=== PATIENT | male | born 1990 | race Caucasian/White ===

== ENCOUNTER 2019-12-14 09:12 | Emergency (ER) | payer BC ==
--- NOTE | 2019-12-14 09:35 | ERPHSYRPT ---
- History of Present Illness Time Seen by Provider: 12/14/19 09:25 Source: patient Exam Limitations: clinical condition Patient Subjective Stated Complaint: Pt states "I was coughing up phlegm last night and this morning I started to have horrible shortness of breath." Triage Nursing Assessment: Pt presetned alert and oriented X 3, skin pwd Pt an xious, tachpniec, moanin. Pt a febrile, clear lung sounds. Physician History: This is a 29-year-old obese white male who works at a correctional facility and presents with relatively sudden onset of productive cough for o'clock this morning. Patient was coughing to the point of gagging. He was producing greenish sputum. Patient has no history of asthma or primary respiratory issues per his report. He does have some mild anxiety. Patient complained of some mild chest pain as well. Patient was short of breath when coughing. The coughing has subsided but the patient has muscle aches and pains that are generalized. He denies nausea vomiting or diarrhea. He did not take his temperature but arrives with no fever. He has not been around anyone that has been ill per his knowledge. Timing/Duration: today Cough Quality/Degree: moderate, productive cough Possible Cause: no prior episodes Modifying Factors: Improves With: coughing Associated Symptoms: chest pain/soreness, cough (Productive green sputum) Allergies/Adverse Reactions: No Known Drug Allergies Allergy (Unverified 12/14/19 09:19) Home Medications: Escitalopram Oxalate 10 mg [Lexapro 10 MG] 20 mg PO DAILY 12/14/19 [History] Naproxen 500 mg PO DAILY 12/14/19 [History] Hx Tetanus, Diphtheria Vaccination/Date Given: Yes Hx Influenza Vaccination/Date Given: No Hx Pneumococcal Vaccination/Date Given: No Immunizations Up to Date: Yes Travel Risk - International Travel Have you traveled outside of the country in past 3 weeks: No - Coronavirus Screening Are you exhibiting any of the following symptoms?: Yes Symptoms: Shortness of Breath Close contact with a COVID-19 positive Pt in past 14-21 Days: No - Review of Systems Constitutional: No Symptoms Eyes: No Symptoms Ears, Nose, & Throat: No Symptoms Respiratory: Cough Cardiac: No Symptoms Abdominal/Gastrointestinal: No Symptoms Genitourinary Symptoms: No Symptoms Musculoskeletal: Arthralgias, Myalgias Skin: No Symptoms Neurological: No Symptoms Psychological: No Symptoms Endocrine: No Symptoms Hematologic/Lymphatic: No Symptoms Immunological/Allergic: No Symptoms All Other Systems: Reviewed and Negative - Past Medical History Pertinent Past Medical History: Yes Neurological History: No Pertinent History ENT History: No Pertinent History Cardiac History: No Pertinent History Respiratory History: No Pertinent History Endocrine Medical History: No Pertinent History Musculoskeletal History: No Pertinent History GI Medical History: No Pertinent History History: No Pertinent History Psycho-Social History: Anxiety Male Reproductive Disorders: No Pertinent History Other Medical History: chronic back pain. depression - Past Surgical History Past Surgical History: Yes Neuro Surgical History: No Pertinent History Cardiac: No Pertinent History Respiratory: No Pertinent History Gastrointestinal: No Pertinent History Genitourinary: No Pertinent History Musculoskeletal: No Pertinent History Male Surgical History: No Pertinent History Other Surgical History: heart cath - Social History Smoking Status: Former smoker Exposure to second hand smoke: Yes Drug Use: none Patient Lives Alone: No - Nursing Vital Signs Nursing Vital Signs: Initial Vital Signs Temperature 98.4 F 12/14/19 09:12 Pulse Rate 90 12/14/19 09:12 Respiratory Rate 28 H 12/14/19 09:12 Blood Pressure 122/77 12/14/19 09:12 O2 Sat by Pulse Oximetry 97 12/14/19 09:12 Pain Scale Pain Intensity 4 - Physical Exam General Appearance: mild distress, alert, anxiety, obese Eye Exam: PERRL/EOMI, eyes nml inspection Ears, Nose, Throat Exam: normal ENT inspection, moist mucous membranes Neck Exam: normal inspection, non-tender, supple, full range of motion Respiratory Exam: normal breath sounds, chest tenderness, lungs clear, airway intact, No respiratory distress Cardiovascular Exam: regular rate/rhythm, normal heart sounds, normal peripheral pulses Gastrointestinal/Abdomen Exam: soft, normal bowel sounds, No tenderness Rectal Exam: not done Back Exam: normal inspection, normal range of motion, No CVA tenderness, No vertebral tenderness Extremity Exam: normal inspection, normal range of motion, pelvis stable Neurologic Exam: alert, oriented x 3, cooperative, church musician II-XII nml as tested, nml cerebellar function, nml station & gait, sensation nml Skin Exam: normal color, warm, dry Lymphatic Exam: No adenopathy SpO2 Interpretation: normal SpO2: 97 O2 Delivery: Room Air - Course Nursing assessment & vital signs reviewed: Yes EKG Interpreted by Me: RATE (89), Sinus Rhythm, NORMAL AXIS, NORMAL INTERVALS, NORMAL QRS, Other (No ischemic changes. No comparison EKG available) Ordered Tests: Active Orders 24 hr Category Date Time Status Car Pilot STAT Care 12/14/19 09:37 Active EKG-ER Only STAT Care 12/14/19 09:36 Active IV Insertion STAT Care 12/14/19 09:36 Active Pulse Oximetry (ED) STAT Care 12/14/19 09:36 Active CHEST 1 VIEW (PORTABLE) Stat Exams 12/14/19 09:36 Completed BLOOD CULTURE Stat Lab 12/14/19 10:25 Ordered CBC W DIFF Stat Lab 12/14/19 09:46 Completed CMP Stat Lab 12/14/19 09:46 Completed D-DIMER QUANTITATIVE Stat Lab 12/14/19 09:46 Completed Lactic Acid Stat Lab 12/14/19 09:50 Completed [place] Screen Stat Lab 12/14/19 09:46 Completed NT PRO BNP Stat Lab 12/14/19 09:46 Completed TROPONIN Q3H Lab 12/14/19 09:46 Completed TROPONIN Q3H Lab 12/14/19 12:45 Ordered TROPONIN Q3H Lab 12/14/19 15:45 Ordered TROPONIN Q3H Lab 12/14/19 18:45 Ordered TROPONIN Q3H Lab 12/14/19 21:45 Ordered UA W/RFX UR CULTURE Stat Lab 12/14/19 09:36 Uncollected Medication Summary Generic Name Dose Route Start Last Admin Trade Name Freq PRN Reason Stop Dose Admin Ceftriaxone Sodium/Dextrose 1 g in 50 mls @ 100 mls/hr 12/14/19 10:25 12/14/19 10:37 Rocephin 1 Gm-D5w 50 Ml Bag IV 12/14/19 10:54 100 mls/hr STAT STA 100 mls/hr Administration Discontinued Medications Generic Name Dose Route Start Last Admin Trade Name Freq PRN Reason Stop Dose Admin Hydrocodone Bitart/Acetaminophen 10 ml 12/14/19 10:25 12/14/19 10:36 Hydrocodone-Acetamin 2.5-108/5 Ml Solution PO 12/14/19 10:26 10 ml STAT STA Administration Hydrocodone Bitart/Acetaminophen Confirm 12/14/19 10:33 Hydrocodone-Acetamin 2.5-108/5 Ml Solution Administered 12/14/19 10:34 Dose 10 ml .ROUTE .STK-MED ONE Ceftriaxone Sodium/Dextrose Confirm 12/14/19 10:33 Rocephin 1 Gm-D5w 50 Ml Bag Administered 12/14/19 10:34 Dose 1 g in 50 mls @ ud IV .STK-MED ONE Methylprednisolone Sodium Succinate 125 mg 12/14/19 10:25 12/14/19 10:37 Solu-Medrol 125 Mg IV 12/14/19 10:26 125 mg STAT ONE Administration Methylprednisolone Sodium Succinate Confirm 12/14/19 10:33 Solu-Medrol 125 Mg Administered 12/14/19 10:34 Dose 125 mg .ROUTE .STK-MED ONE Lab/Rad Data: Laboratory Result Diagrams 12/14/19 09:46 12/14/19 09:46 Laboratory Results 12/14/19 12/14/19 12/14/19 Range/Units 10:00 09:50 09:46 WBC (4.0-10.5) K/mm3 RBC (4.1-5.6) M/mm3 Hgb (12.5-18.0) gm/dl Hct (42-50) % MCV (78-100) fl MCH (26-32) pg MCHC (32-36) g/dl RDW (11.5-14.0) % Plt Count (150-450) K/mm3 MPV (7.5-11.0) fl Gran % (36.0-66.0) % Eos # (Auto) (0-0.5) Absolute Lymphs (auto) (1.0-4.6) Absolute Monos (auto) (0.0-1.3) Lymphocytes % (24.0-44.0) % Monocytes % (0.0-12.0) % Eosinophils % (0.00-5.0) % Basophils % (0.0-0.4) % Absolute Granulocytes (1.4-6.9) Basophils # (0-0.4) D-Dimer (215-500) ng/mL Sodium (137-145) mmol/L Potassium (3.5-5.1) mmol/L Chloride (98-107) mmol/L Carbon Dioxide (22-30) mmol/L Anion Gap (5-15) MEQ/L BUN (9-20) mg/dL Creatinine (0.66-1.25) mg/dL Estimated GFR ML/MIN Glucose (74-106) mg/dL Lactic Acid 1.6 (0.4-2.0) Calcium (8.4-10.2) mg/dL Total Bilirubin (0.2-1.3) mg/dL AST (17-59) U/L ALT (0-50) U/L Alkaline Phosphatase (38-126) U/L Troponin I (0.000-0.034) ng/mL NT-Pro-B Natriuret Pep (0-450) pg/mL Serum Total Protein (6.3-8.2) g/dL Albumin (3.5-5.0) g/dL Monoscreen NEGATIVE (Negative) Influenza Type A Ag NEGATIVE (NEGATIVE) Influenza Type B Ag NEGATIVE (NEGATIVE) RSV (PCR) NEGATIVE (Negative) Group A Strep Antibody NOT DETECTED (NEGATIVE) 12/14/19 12/14/19 12/14/19 Range/Units 09:46 09:46 09:46 WBC (4.0-10.5) K/mm3 RBC (4.1-5.6) M/mm3 Hgb (12.5-18.0) gm/dl Hct (42-50) % MCV (78-100) fl MCH (26-32) pg MCHC (32-36) g/dl RDW (11.5-14.0) % Plt Count (150-450) K/mm3 MPV (7.5-11.0) fl Gran % (36.0-66.0) % Eos # (Auto) (0-0.5) Absolute Lymphs (auto) (1.0-4.6) Absolute Monos (auto) (0.0-1.3) Lymphocytes % (24.0-44.0) % Monocytes % (0.0-12.0) % Eosinophils % (0.00-5.0) % Basophils % (0.0-0.4) % Absolute Granulocytes (1.4-6.9) Basophils # (0-0.4) D-Dimer 247 (215-500) ng/mL Sodium 139 (137-145) mmol/L Potassium 3.9 (3.5-5.1) mmol/L Chloride 106 (98-107) mmol/L Carbon Dioxide 24 (22-30) mmol/L Anion Gap 13.0 (5-15) MEQ/L BUN 14 (9-20) mg/dL Creatinine 0.64 L (0.66-1.25) mg/dL Estimated GFR > 60.0 ML/MIN Glucose 99 (74-106) mg/dL Lactic Acid (0.4-2.0) Calcium 9.4 (8.4-10.2) mg/dL Total Bilirubin 0.40 (0.2-1.3) mg/dL AST 23 (17-59) U/L ALT 36 (0-50) U/L Alkaline Phosphatase 56 (38-126) U/L Troponin I < 0.012 (0.000-0.034) ng/mL NT-Pro-B Natriuret Pep 50.7 (0-450) pg/mL Serum Total Protein 6.6 (6.3-8.2) g/dL Albumin 3.9 (3.5-5.0) g/dL Monoscreen (Negative) Influenza Type A Ag (NEGATIVE) Influenza Type B Ag (NEGATIVE) RSV (PCR) (Negative) Group A Strep Antibody (NEGATIVE) 12/14/19 Range/Units 09:46 WBC 19.9 H (4.0-10.5) K/mm3 RBC 5.33 (4.1-5.6) M/mm3 Hgb 15.5 (12.5-18.0) gm/dl Hct 45.3 (42-50) % MCV 85.0 (78-100) fl MCH 29.1 (26-32) pg MCHC 34.2 (32-36) g/dl RDW 13.1 (11.5-14.0) % Plt Count 202 (150-450) K/mm3 MPV 10.3 (7.5-11.0) fl Gran % 79.9 H (36.0-66.0) % Eos # (Auto) 0.16 (0-0.5) Absolute Lymphs (auto) 3.10 (1.0-4.6) Absolute Monos (auto) 0.69 (0.0-1.3) Lymphocytes % 15.6 L (24.0-44.0) % Monocytes % 3.5 (0.0-12.0) % Eosinophils % 0.8 (0.00-5.0) % Basophils % 0.2 (0.0-0.4) % Absolute Granulocytes 15.91 H (1.4-6.9) Basophils # 0.03 (0-0.4) D-Dimer (215-500) ng/mL Sodium (137-145) mmol/L Potassium (3.5-5.1) mmol/L Chloride (98-107) mmol/L Carbon Dioxide (22-30) mmol/L Anion Gap (5-15) MEQ/L BUN (9-20) mg/dL Creatinine (0.66-1.25) mg/dL Estimated GFR ML/MIN Glucose (74-106) mg/dL Lactic Acid (0.4-2.0) Calcium (8.4-10.2) mg/dL Total Bilirubin (0.2-1.3) mg/dL AST (17-59) U/L ALT (0-50) U/L Alkaline Phosphatase (38-126) U/L Troponin I (0.000-0.034) ng/mL NT-Pro-B Natriuret Pep (0-450) pg/mL Serum Total Protein (6.3-8.2) g/dL Albumin (3.5-5.0) g/dL Monoscreen (Negative) Influenza Type A Ag (NEGATIVE) Influenza Type B Ag (NEGATIVE) RSV (PCR) (Negative) Group A Strep Antibody (NEGATIVE) - Progress Progress: improved, re-examined Air Movement: good Progress Note: 12/14/19 10:24 Chest x-ray reveals new mild right sided airspace disease. Blood Culture(s) Obtained: Yes Antibiotics given: Yes Counseled pt/family regarding: lab results, diagnosis, need for follow-up, rad results - Departure Departure Disposition: Home Clinical Impression: Leukocytosis, Right pulmonary infiltrate on CXR Condition: Stable Critical Care Time: No Referrals: ESEQUIEL MARSHALL NP [NON-STAFF PHY W/O PRIVILEGES] - Additional Instructions: Drink plenty of fluids. Take medication as prescribed. Follow-up with your primary care physician for persistent symptoms. You need to quarantine yourself at home until you receive the results of your COVID-19 test. Prescriptions: Prednisone 10 mg [Deltasone 10 mg] 10 mg PO TID #12 tablet Hydrocodone Bit/Acetaminophen [Hydrocodone-Acetaminophen Soln] 10 ml PO Q6H #120 ml Albuterol 8 gm Mdi Hfa [Ventolin Hfa MDI] 8 gm IH Q4H #1 hfa.[email or web address] Azithromycin 250 mg [Zithromax 250 MG TABLET] 250 mg PO ZPACK #6 tablet
[2019-12-14 09:51] LABS: Absolute Neutrophil Ct (ANC) 15.91 (1.4-6.9); BASOPHIL % 0.2 % (0.0-0.4); Basophil (Absolute #) 0.03 (0-0.4); Eosinophil % 0.8 % (0.00-5.0); Eosinophil (Absolute #) 0.16 (0-0.5); Hematocrit 45.3 % (42-50); Hemoglobin 15.5 gm/dl (12.5-18.0); Lymphocytes % 15.6 % (24.0-44.0); Mean Corpuscular Hemoglobin 29.1 pg (26-32); Mean Corpuscular Hgb Concent. 34.2 g/dl (32-36); Mean Platelet Volume 10.3 fl (7.5-11.0); Monocyte (Absolute #) 0.69 (0.0-1.3); Monocytes % 3.5 % (0.0-12.0); Neutrophil % 79.9 % (36.0-66.0); Platelet Count 202 K/mm3 (150-450); Red Blood Count 5.33 M/mm3 (4.1-5.6); Red Cell Distribution Width 13.1 % (11.5-14.0); White Blood Count 19.9 K/mm3 (4.0-10.5)
[2019-12-14 10:04] LABS: ALBUMIN 3.9 g/dL (3.5-5.0); ALKALINE PHOSPHATASE 56 U/L (38-126); BLOOD UREA NITROGEN 14 mg/dL (9-20); CHLORIDE 106 mmol/L (98-107); Calcium 9.4 mg/dL (8.4-10.2); Carbon Dioxide 24 mmol/L (22-30); Creatinine 1 0.64 mg/dL (0.66-1.25); Glucose 99 mg/dL (74-106); NT PRO BNP 50.7 pg/mL (0-450); Potassium 3.9 mmol/L (3.5-5.1); SGOT/AST 23 U/L (17-59); SGPT/ALT 36 U/L (0-50); SODIUM 139 mmol/L (137-145); Total Protein 6.6 g/dL (6.3-8.2)
--- NOTE | 2019-12-14 10:16 | XRAY ---
Indication: Fever, cough, short of breath, and back pain. Suspect Covid 19. Comparison: August 11, 2010. Portable chest underinflated with new mild right lung airspace disease without consolidation/large effusion. Remaining heart, left lung, and bony thorax unremarkable.
[2019-12-14] MEDS ORDERED: HYDROCODONE-ACETAMIN 2.5-108/5 ML SOLUTION PO STA (10:25)
[2019-12-14] MEDS ORDERED: solu-MEDROL 125 MG IV ONE (10:25)
[2019-12-14] MEDS ORDERED: ROCEPHIN 1 Gm-D5w 50 ml Bag** 1 G/50 ML IVPB IV STA (10:25)
[2019-12-14] MEDS ORDERED: solu-MEDROL 125 MG ONE (10:33)
[2019-12-14] MEDS ORDERED: HYDROCODONE-ACETAMIN 2.5-108/5 ML SOLUTION ONE (10:33)
[2019-12-14] MEDS ORDERED: ROCEPHIN 1 Gm-D5w 50 ml Bag** 1 G/50 ML IVPB IV ONE (10:33)
[2019-12-14 10:40] LABS: INFLUENZA A NEGATIVE (NEGATIVE); INFLUENZA B NEGATIVE (NEGATIVE); RESPIRATORY SYNCTIAL VIRUS NEGATIVE (Negative)
[2019-12-14 11:33] LABS: Appearance CLEAR (CLEAR); Bilirubin NEGATIVE (NEGATIVE); Blood NEGATIVE Ery/ul (0-5); Glucose NEGATIVE (NEGATIVE); Ketones NEGATIVE (NEGATIVE); Leukocyte Esterase NEGATIVE (NEGATIVE); Nitrite NEGATIVE (NEGATIVE); Protein,Urine Dip NEGATIVE (Negative); Specific Gravity 1.018 (1.005-1.025); Urobilinogen NEGATIVE mg/dL (0-1)
[2019-12-14 11:57] VITALS: BP 114/91; PULSE 90; O2SAT 98
== END 2019-12-14 12:12 | disposition home or self-care (01) ==
LOC: ED 09:12
DX: D72.829 Elevated white blood cell count, unspecified (principal); R91.8 Other nonspecific abnormal finding of lung field
CPT/HCPCS: 36000; 36415; 71045; 80053; 81001; 83605; 83880; 84484; 85025; 85379; 86308; 87040; 87631; 87651; 93005; 93041; 94760; 96365; 96374; 99284; U0003; J0696; J2930; A9270-GY

== ENCOUNTER 2023-01-14 05:43 | Emergency (ER) | payer BC ==
[2023-01-14 05:59] VITALS: TEMP 99.1
[2023-01-14] MEDS ORDERED: SUBLIMAZE 100 MCG/2 ML IV ONE (06:09)
[2023-01-14] MEDS ORDERED: Sodium Chloride 0.9% 1000 ML 1,000 ML IV STA (06:09)
[2023-01-14] MEDS ORDERED: Zofran 4 MG/2 ML VIAL IV ONE (06:09)
[2023-01-14] MEDS ORDERED: SUBLIMAZE 100 MCG/2 ML ONE (06:14)
[2023-01-14] MEDS ORDERED: Zofran 4 MG/2 ML VIAL ONE (06:14)
[2023-01-14] MEDS ORDERED: Sodium Chloride 0.9% 1000 ML 1,000 ML ONE (06:15)
--- NOTE | 2023-01-14 06:16 | ERPHSYRPT ---
- History of Present Illness Source: patient Exam Limitations: no limitations Patient Subjective Stated Complaint: pt states he woke up to go to bathroom this morning and has Triage Nursing Assessment: pt alert and oriented, answers questions approp. pt back to rooom per wheelchar and transfers to stretcher with assist of 1. limping gait noted. pt states he has pain in his rt groin that radiates down his inner thigh. states 8/10 and describes as burning. lung sound cta bilat. Timing/Duration: today Severity: severe Associated Symptoms: denies symptoms Hx Tetanus, Diphtheria Vaccination/Date Given: Yes Hx Influenza Vaccination/Date Given: Yes Hx Pneumococcal Vaccination/Date Given: No Immunizations Up to Date: No <RAHRICHA - Last Filed: 01/14/23 06:16> <JAZ LERMA - Last Filed: 01/14/23 08:51> - History of Present Illness Time Seen by Provider: 01/14/23 06:12 Physician History: Patient is 32-year-old male picked up to go to the bathroom in the morning and suddenly started having right sided groin area pain excruciating radiating to the right inner thigh as well as in the right scrotum. Patient denies any urine problem or nausea or vomiting. Patient did not have this type of pain before. (RAHRICHA) Allergies/Adverse Reactions: No Known Drug Allergies Allergy (Verified 01/14/23 06:02) Home Medications: modafiniL [Modafinil] 200 mg PO DAILY 01/14/23 [History] Travel Risk - International Travel Have you traveled outside of the country in past 3 weeks: No - Coronavirus Screening Are you exhibiting any of the following symptoms?: No Close contact with a COVID-19 positive Pt in past 14-21 Days: No - Vaccine Status Have you recieved a Covid-19 vaccination: No <RAH,RICHA - Last Filed: 01/14/23 06:16> - Review of Systems Constitutional: No Symptoms Eyes: No Symptoms Ears, Nose, & Throat: No Symptoms Respiratory: No Symptoms Cardiac: No Symptoms Abdominal/Gastrointestinal: Other (right groin pain) Genitourinary Symptoms: No Symptoms Musculoskeletal: No Symptoms Skin: No Symptoms Neurological: No Symptoms Psychological: No Symptoms <RAH,RICHA - Last Filed: 01/14/23 06:16> - Past Medical History Pertinent Past Medical History: Yes Neurological History: No Pertinent History ENT History: No Pertinent History Cardiac History: No Pertinent History, High Cholesterol Respiratory History: No Pertinent History Endocrine Medical History: No Pertinent History Musculoskeletal History: No Pertinent History GI Medical History: No Pertinent History History: No Pertinent History Psycho-Social History: Anxiety Male Reproductive Disorders: No Pertinent History Other Medical History: chronic back pain. narcolepsy - Past Surgical History Past Surgical History: Yes Neuro Surgical History: No Pertinent History Cardiac: No Pertinent History Respiratory: No Pertinent History Gastrointestinal: No Pertinent History Genitourinary: No Pertinent History Musculoskeletal: No Pertinent History Male Surgical History: No Pertinent History Other Surgical History: heart cath- no stents. finger surger - Social History Smoking Status: Former smoker Exposure to second hand smoke: No Drug Use: none Patient Lives Alone: No < - Filed: 01/14/23 06:16> - Physical Exam General Appearance: moderate distress, alert Eye Exam: PERRL/EOMI, eyes nml inspection Ears, Nose, Throat Exam: normal ENT inspection, TMs normal, pharynx normal, moist mucous membranes Neck Exam: normal inspection, non-tender, supple, full range of motion Respiratory Exam: normal breath sounds, lungs clear, No respiratory distress Cardiovascular Exam: regular rate/rhythm, normal heart sounds, normal peripheral pulses Gastrointestinal/Abdomen Exam: soft, normal bowel sounds, tenderness (right groin), guarding (right groin), No mass Back Exam: normal inspection, normal range of motion, No CVA tenderness, No vertebral tenderness Extremity Exam: normal inspection, normal range of motion, pelvis stable Neurologic Exam: alert, oriented x 3, cooperative, normal mood/affect, nml cerebellar function, nml station & gait, sensation nml, No motor deficits Skin Exam: normal color, warm, dry, No rash Lymphatic Exam: No adenopathy SpO2 Interpretation: normal SpO2: 97 O2 Delivery: Room Air RAH Filed: 01/14/23 06:16> - Nursing Vital Signs Nursing Vital Signs: Initial Vital Signs Temperature 99.1 F 01/14/23 05:47 Pulse Rate 98 H 01/14/23 05:47 Respiratory Rate 24 01/14/23 05:47 Blood Pressure 134/81 01/14/23 05:47 O2 Sat by Pulse Oximetry 98 01/14/23 05:47 Pain Scale Pain Intensity 4 - Course Nursing assessment & vital signs reviewed: Yes - Radiology Ultrasound Exam Scrotal Ultrasound: discussed w/radiologist <RICHA MONREAL - Last Filed: 01/14/23 06:16> Ordered Tests: Active Orders 24 hr Category Date Time Status IV Insertion STAT Care 01/14/23 06:13 Active ABDOMEN AND PELVIS W/0 CONTRAS [CT] Stat Exams 01/14/23 06:59 Completed TESTICLE [US] Stat Exams 01/14/23 06:09 Completed AMYLASE Stat Lab 01/14/23 05:58 Completed CBC W DIFF Stat Lab 01/14/23 05:58 Completed CMP Stat Lab 01/14/23 05:58 Completed LIPASE Stat Lab 01/14/23 05:58 Completed UA W/RFX UR CULTURE Stat Lab 01/14/23 05:58 Completed Medication Summary Discontinued Medications Generic Name Dose Route Start Last Admin Trade Name Wendy PRN Reason Stop Dose Admin Fentanyl Citrate 50 mcg 01/14/23 06:09 01/14/23 06:17 Fentanyl Citrate 100 Mcg/2 Ml* Vial IV 01/14/23 06:10 50 mcg STAT ONE Administration Fentanyl Citrate Confirm 01/14/23 06:14 Fentanyl Citrate 100 Mcg/2 Ml* Vial Administered 01/14/23 06:15 Dose 100 mcg .ROUTE .STK-MED ONE Sodium Chloride 1,000 mls @ 999 mls/hr 01/14/23 06:09 01/14/23 08:03 Sodium Chloride 0.9% 1000 Ml IV 01/14/23 07:09 Infused .Q1H1M STA Infusion Sodium Chloride Confirm 01/14/23 06:15 Sodium Chloride 0.9% 1000 Ml Administered 01/14/23 06:16 Dose 1,000 mls @ ud .ROUTE .STK-MED ONE Ketorolac Tromethamine 30 mg 01/14/23 08:34 01/14/23 08:40 Ketorolac Tromethamine 30 Mg/Ml Inj IV 01/14/23 08:35 30 mg STAT ONE Administration Ketorolac Tromethamine Confirm 01/14/23 08:40 Ketorolac Tromethamine 30 Mg/Ml Inj Administered 01/14/23 08:41 Dose 30 mg .ROUTE .STK-MED ONE Lorazepam 1 mg 01/14/23 07:29 01/14/23 07:37 Lorazepam 2 Mg/1 Ml 2 Mg Vial IV 01/14/23 07:30 1 mg STAT ONE Administration Lorazepam Confirm 01/14/23 07:36 Lorazepam 2 Mg/1 Ml 2 Mg Vial Administered 01/14/23 07:37 Dose 2 mg .ROUTE .STK-MED ONE Ondansetron HCl 4 mg 01/14/23 06:09 01/14/23 06:17 Ondansetron Hcl 4 Mg/2 Ml Vial IV 01/14/23 06:10 4 mg STAT ONE Administration Ondansetron HCl Confirm 01/14/23 06:14 Ondansetron Hcl 4 Mg/2 Ml Vial Administered 01/14/23 06:15 Dose 4 mg .ROUTE .STK-MED ONE Lab/Rad Data: Laboratory Result Diagrams 01/14/23 05:58 01/14/23 05:58 Laboratory Results 01/14/23 01/14/23 01/14/23 Range/Units 05:58 05:58 05:58 WBC 16.6 H (4.0-10.5) x10^3/uL RBC 5.06 (4.1-5.6) x10^6/uL Hgb 15.0 (12.5-18.0) g/dL Hct 43.1 (42-50) % MCV 85.2 (78-100) fL MCH 29.6 (26-32) pg MCHC 34.8 (32-36) g/dL RDW 12.1 (11.5-14.0) % Plt Count 208 (150-450) x10^3/uL MPV 10.0 (7.5-11.0) fL Gran % 81.7 H (36.0-66.0) % Immature Gran % (Auto) 0.4 (0.00-0.4) % Nucleat RBC Rel Count 0.0 (0.00-0.1) % Eos # (Auto) 0.34 (0-0.5) x10^3/uL Immature Gran # (Auto) 0.07 H (0.00-0.03) x10^3u/L Absolute Lymphs (auto) 1.57 (1.0-4.6) x10^3/uL Absolute Monos (auto) 1.05 (0.0-1.3) x10^3/uL Absolute Nucleated RBC 0.00 (0.00-0.01) x10^3u/L Lymphocytes % 9.4 L (24.0-44.0) % Monocytes % 6.3 (0.0-12.0) % Eosinophils % 2.0 (0.00-5.0) % Basophils % 0.2 (0.0-0.4) % Absolute Granulocytes 13.56 H (1.4-6.9) x10^3/uL Basophils # 0.04 (0-0.4) x10^3/uL Sodium 139 (137-145) mmol/L Potassium 4.1 (3.5-5.1) mmol/L Chloride 105 (98-107) mmol/L Carbon Dioxide 19 L (22-30) mmol/L Anion Gap 18.7 H (5-15) MEQ/L BUN 8 L (9-20) mg/dL Creatinine 0.64 L (0.66-1.25) mg/dL Estimated GFR > 60.0 ML/MIN Glucose 141 H (74-106) mg/dL Calcium 9.2 (8.4-10.2) mg/dL Total Bilirubin 0.60 (0.2-1.3) mg/dL AST 41 (17-59) U/L ALT 46 (0-50) U/L Alkaline Phosphatase 53 (38-126) U/L Serum Total Protein 7.7 (6.3-8.2) g/dL Albumin 4.6 (3.5-5.0) g/dL Amylase 46 (30-110) U/L Lipase 77 (23-300) U/L Urine Color Yellow (Yellow) Urine Appearance Clear (Clear) Urine pH 6.0 (4.6-8.0) Ur Specific [place] 1.020 (1.005-1.030) Urine Protein Negative (Negative) Urine Glucose (UA) Negative (Negative) mg/dL Urine Ketones Negative (Negative) Urine Blood Negative (Negative) Urine Nitrite Negative (Negative) Urine Bilirubin Negative (Negative) Urine Urobilinogen 0.2 (0.2) mg/dL Ur Leukocyte Esterase Negative (Negative) U Hyaline Cast (Auto) NONE SEEN (0-2) /LPF Urine Microscopic RBC 0-2 (0-5) /HPF Urine Microscopic WBC 0-2 (0-5) /HPF Ur Epithelial Cells None Seen (None Seen) /HPF Urine Bacteria None Seen (None Seen) /HPF Urine Culture Reflexed NO (NO) - Progress Progress: improved, pain not gone completely Counseled pt/family regarding: lab results, diagnosis, need for follow-up, rad results <JAZ LERMA - Last Filed: 01/14/23 08:51> - Progress Progress Note: 01/14/23 07:01 Right testicular/inguinal ultrasound negative for torsion and negative for epididymitis per forestry technician report. Right hydrocele present. 01/14/23 08:35 CT scan of the abdomen pelvis shows hepatomegaly. There is also evidence of right inguinal adenopathy. The remainder of the CT scan of the abdomen pelvis without contrast is negative. (JAZ LERMA) Medical Desision Making - Diagnostic Testing Diagnostic test were ordered, analyzed, and reviewed by me: Yes Radiological Interpretation: Reviewed by me, Teleradiologist Report - Risk of complications The pt has a mod risk of morbidity or mortality based on: Need for prescription drug management <JAZ LERMA - Last Filed: 01/14/23 08:51> <RICHA OMNREAL - Last Filed: 01/14/23 06:16> - Departure Departure Disposition: Home Critical Care Time: No <JAZ LERMA - Last Filed: 01/14/23 08:51> - Departure Clinical Impression: Right inguinal pain, Inguinal adenopathy Condition: Stable Referrals: DANYA GARLAND NP [Primary Care Provider] - Follow up/PCP as directed Instructions: Hernia Repair (DC) Additional Instructions: Call your primary care provider today to make arranges for follow-up appointment and discuss possible referral to urologist if indicated. Take your medication as prescribed. Forms: Work/School Release Form Prescriptions: Oxycodone HCl/Acetaminophen [Percocet 5-325 mg Tablet] 1 each PO Q8H PRN PRN #6 tablet MDD 3 PRN Reason: Moderate To Severe Pain Naproxen 500 mg [Naprosyn 500 MG] 500 mg PO BID #10 tablet
[2023-01-14 06:24] LABS: Appearance Clear (Clear); Bacteria None Seen /HPF (None Seen); Bilirubin Negative (Negative); Blood Negative (Negative); Epithelial Cells None Seen /HPF (None Seen); Glucose, Urine Negative (Negative); Hyaline Casts NONE SEEN /LPF (0-2); Ketones Negative (Negative); Leukocyte Esterase Negative (Negative); Nitrite Negative (Negative); Protein,Urine Dip Negative (Negative); RBC 0-2 /HPF (0-5); Urobilinogen 0.2 mg/dL (0.2); WBC 0-2 /HPF (0-5)
[2023-01-14 06:26] LABS: ADD URINE CULTURE? NO (NO)
[2023-01-14 06:28] LABS: Absolute Neutrophil Ct (ANC) 13.56 x10^3/uL (1.4-6.9); BASOPHIL % 0.2 % (0.0-0.4); Basophil (Absolute #) 0.04 x10^3/uL (0-0.4); Eosinophil (Absolute #) 0.34 x10^3/uL (0-0.5); Hematocrit 43.1 % (42-50); IMMATURE GRAN # 0.07 x10^3u/L (0.00-0.03); IMMATURE GRAN % 0.4 % (0.00-0.4); Lymphocyte (Absolute #) 1.57 x10^3/uL (1.0-4.6); Lymphocytes % 9.4 % (24.0-44.0); Mean Cell Volume 85.2 fL (78-100); Mean Corpuscular Hemoglobin 29.6 pg (26-32); Mean Corpuscular Hgb Concent. 34.8 g/dL (32-36); Monocyte (Absolute #) 1.05 x10^3/uL (0.0-1.3); Monocytes % 6.3 % (0.0-12.0); Neutrophil % 81.7 % (36.0-66.0); Platelet Count 208 x10^3/uL (150-450); Red Blood Count 5.06 x10^6/uL (4.1-5.6); Red Cell Distribution Width 12.1 % (11.5-14.0); White Blood Count 16.6 x10^3/uL (4.0-10.5)
[2023-01-14 06:35] LABS: ALBUMIN 4.6 g/dL (3.5-5.0); ALKALINE PHOSPHATASE 53 U/L (38-126); AMYLASE 46 U/L (30-110); ANION GAP 18.7 MEQ/L (5-15); BLOOD UREA NITROGEN 8 mg/dL (9-20); CHLORIDE 105 mmol/L (98-107); Calcium 9.2 mg/dL (8.4-10.2); Carbon Dioxide 19 mmol/L (22-30); Creatinine 1 0.64 mg/dL (0.66-1.25); EST GLOMERULAR FILTRATION RATE > 60.0 ML/MIN; Glucose 141 mg/dL (74-106); LIPASE 77 U/L (23-300); Potassium 4.1 mmol/L (3.5-5.1); SGOT/AST 41 U/L (17-59); SGPT/ALT 46 U/L (0-50); SODIUM 139 mmol/L (137-145); Total Protein 7.7 g/dL (6.3-8.2)
[2023-01-14] MEDS ORDERED: Ativan 2 MG/1 ML VIAL IV ONE (07:29)
[2023-01-14] MEDS ORDERED: Ativan 2 MG/1 ML VIAL ONE (07:36)
[2023-01-14 08:27] VITALS: RESP 18; O2SAT 96
[2023-01-14] MEDS ORDERED: TORAdol 30 mg Injection IV ONE (08:34)
[2023-01-14] MEDS ORDERED: TORAdol 30 mg Injection ONE (08:40)
--- NOTE | 2023-01-14 08:41 | XRAY ---
Indication: Acute right groin pain. Two-dimensional testicular sonogram performed. Comparison: None Both testicles are homogeneous in echogenicity and demonstrates normal color Doppler flow. Right testicle measures 4.9 x 2.6 x 3.5 cm and the left measures 4.9 x 2.6 x 3.3 cm. 3 mm right epididymal cyst. Left epididymis sonographically unremarkable. Small left and tiny right hydroceles. No suspicious solid extratesticular mass. Targeted ultrasound right groin negative for hernia with and without Valsalva maneuvering. Impression: 1. Tiny right epididymal cyst and nonspecific bilateral hydroceles. 2. Negative for suspicious intra/extratesticular mass or torsion. Comment: Preliminary report was given.
[2023-01-14 08:45] VITALS: BP 124/80; PULSE 94
--- NOTE | 2023-01-14 08:45 | XRAY ---
Indication: Right groin/inguinal pain. Multiple contiguous axial images obtained through the abdomen and pelvis without contrast. Comparison: May 04, 2009 Lung bases clear. Heart not enlarged. Noncontrasted stomach and bowel loops appear nonobstructed with normal appendix. Stable 1 cm right adrenal adenoma. New 25 cm fatty cardiomegaly. No free fluid/air. Remaining liver, gallbladder, pancreas, spleen, adrenal glands, kidneys, ureters, bladder, and aorta are unremarkable for noncontrast exam. Osseous structures intact with mild L5-S1 degenerative disc disease. New prominent right inguinal lymph nodes, largest 1.8 x 2.5 cm presumed reactive. Impression: 1. Prominent right inguinal lymph nodes presumed reactive. 2. Chronic findings including fatty hepatomegaly, right adrenal adenoma, and L5-S1 degenerative disc disease. 3. Remaining CT abdomen/pelvis without contrast exam is negative.
== END 2023-01-14 08:55 | disposition home or self-care (01) ==
LOC: ED 05:43
DX: R10.2 Pelvic and perineal pain (principal); R59.0 Localized enlarged lymph nodes; E78.5 Hyperlipidemia, unspecified; Z79.891 Long term (current) use of opiate analgesic; Z79.899 Other long term (current) drug therapy; Z28.310 Unvaccinated for COVID-19
CPT/HCPCS: 36000; 36415; 74176; 76870; 80053; 81001; 82150; 83690; 85025; 96374; 96375; 99284; J1885; J2060; J2405; J3010